=== PATIENT | female | born 1955 | race Caucasian/White ===

== ENCOUNTER 2018-01-19 07:09 | Day surgery (SDC) | payer OTHER ==
[2018-01-19] MEDS ORDERED: LACTATED RINGERS 1,000 ML IV ONE ×2 (07:38→08:42)
[2018-01-19] MEDS ORDERED: fentaNYL 250 MCG/5 ML VIAL IVP ONE (08:10)
[2018-01-19] MEDS ORDERED: MIDAZOLAM 2 MG/2 ML VIAL IVP ONE (08:10)
[2018-01-19 09:02] VITALS: BP 145/97
[2018-01-19] MEDS ORDERED: ONDANSETRON ODT 4 MG TABLET ONE (09:54)
== END 2018-01-19 07:10 | disposition home or self-care (01) ==
LOC: SDS 07:09
PROVIDERS: ATTEND Surgery
PROC: 0DJD8ZZ Inspection of Lower Intestinal Tract, Via Natural or Artificial Opening Endoscopic (ICD-10-PCS; principal; 2018-01-19 08:21)
DX: Z12.11 Encounter for screening for malignant neoplasm of colon (principal); K64.8 Other hemorrhoids; I10 Essential (primary) hypertension; Z87.891 Personal history of nicotine dependence
CPT/HCPCS: 45378; J3010; J7120; Q0162

== ENCOUNTER 2018-04-28 15:38 | Outpatient (CLI) | payer OTHER ==
--- NOTE | 2018-04-29 14:09 | MRI Report ---
Reason: PAIN IN UNSPECIFIED KNEE Procedure Date: 04/28/2018 Accession Number: [id number] / [id number] Procedure: MRI - Knee RT W/O CPT Code: FULL RESULT: EXAM: RIGHT KNEE MRI WITHOUT CONTRAST EXAM DATE: 04/28/2018 05:03 PM. CLINICAL HISTORY: Worsening right knee pain. Previous ACL reconstruction 30 years ago. COMPARISON: None. TECHNIQUE: Multiplanar, multisequence T1-weighted and fluid-sensitive sequences of the knee without contrast. Other: None. FINDINGS: Bones and articular cartilage: Postoperative changes at the distal femur and proximal tibia from previous ACL reconstruction. Metallic hardware at the proximal tibia which causes some artifact. No definite acute fracture or bone lesions. Marginal osteophytes at the femoral condyles, tibial plateau, patella, and femoral trochlea. Focal grade IV chondromalacia at the central aspect of the medial femoral condyle. Focal full-thickness articular cartilage defect at the medial tibial plateau. Grade II chondromalacia at the median ridge and medial facet of the patella. Focal 3 mm full-thickness articular cartilage defect at the lateral trochlear facet. Articular cartilage delamination injury at the lateral trochlear facet. No patellar subluxation. Medial Meniscus: Horizontal tear extending through the inferior surface and free edge fraying at the posterior horn and body. The medial meniscal body is partially extruded medially from the medial joint compartment. Lateral Meniscus: The lateral meniscus is intact. Cruciate Ligaments: The ACL graft is intact. The posterior cruciate ligament is intact. There is an approximately 1.6 x 1.1 x 1.4 cm multilobular and septated intraosseous and extraosseous cyst arising from an osteophyte at the posterior lateral aspect of the medial tibial plateau. The cyst is also posterior to the posterior cruciate ligament. Collateral Ligaments: The medial collateral and lateral collateral ligamentous structures are intact. Tendons: The quadriceps, patellar, semimembranosus, and popliteus tendons are unremarkable. Musculature: No edema or fatty atrophy. Other: Small joint effusion. No popliteal cyst. No loose bodies. The medial and lateral retinacula are intact. The subcutaneous tissues and fat pads are unremarkable. IMPRESSION: 1. Previous ACL reconstruction. The ACL graft is intact. 2. 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 3. Horizontal tear and free edge fraying at the posterior horn and body of the medial meniscus. 4. A 1.6 x 1.1 x 1.4 cm multilobular and septated intraosseous and extraosseous cyst arising from an osteophyte at the posterior lateral aspect of the medial tibial plateau. 5. Small joint effusion. [facility] MUSCULOSKELETAL RADIOLOGY SECTION
== END 2018-04-28 15:39 | disposition home or self-care (01) ==
LOC: DI 15:38
PROVIDERS: ATTEND Registered Nurse Diabetes Educator
DX: M17.11 Unilateral primary osteoarthritis, right knee (principal); S83.241A Other tear of medial meniscus, current injury, right knee, initial encounter; M25.761 Osteophyte, right knee; M25.461 Effusion, right knee

== ENCOUNTER 2021-04-16 12:59 | Outpatient (CLI) | payer OTHER | END 2021-04-16 13:00 | disposition short-term general hospital (02) | LOC: EMS 12:59 | DX: S99.912A Unspecified injury of left ankle, initial encounter (principal); W10.9XXA Fall (on) (from) unspecified stairs and steps, initial encounter; Y93.89 Activity, other specified; Y92.009 Unspecified place in unspecified non-institutional (private) residence as the place of occurrence of the external cause | CPT/HCPCS: A0425; A0427 ==

== ENCOUNTER 2022-08-02 14:34 | Outpatient (CLI) | payer MEDICARE, OTHER ==
[2022-08-02 18:17] LABS: ALBUMIN 4.5 g/dL (3.2-5.5); ALBUMIN/GLOBULIN RATIO 1.5 (1.0-2.2); BILIRUBIN,TOTAL 0.8 mg/dL (0.2-1.0); CALCIUM 9.5 mg/dL (8.5-10.3); POTASSIUM 3.5 mmol/L (3.5-5.0); TOTAL PROTEIN 7.6 g/dL (6.7-8.2)
== END 2022-08-02 14:35 | disposition home or self-care (01) ==
LOC: LAB.N 14:34
PROVIDERS: ATTEND Physician Assistant
DX: E87.6 Hypokalemia (principal)
CPT/HCPCS: 36415; 80053

== ENCOUNTER 2022-10-15 07:39 | Outpatient (CLI) | payer MEDICARE, OTHER ==
--- NOTE | 2022-10-15 11:13 | XRAY Report ---
PROCEDURE: Cervical Spine Comp w/Flex/Ext INDICATIONS: PARESTHESIA OF SKIN TECHNIQUE: 7 views of the cervical spine were acquired. COMPARISON: None. FINDINGS: Bones: No fractures or dislocations to the C7-T1 level. No suspicious bony lesions. Multilevel mod erate to severe degenerative disc space narrowing is present most severe at C3-4. Multilevel anterior osteophytes as well as uncovertebral arthropathy is present. There is retrolisthesis of C3 on C4. Mu ltilevel moderate to severe foraminal narrowing is present left greater than right. There is decrease d range of motion between flexion and extension, with preserved normal bony alignment. Soft tissues: Prevertebral soft tissues are normal in thickness. IMPRESSION: Prominent multilevel degenerative changes including disc space narrowing and foraminal n arrowing as above. Reviewed by: Sonia Lombardo MD on 10/15/2022 11:11 AM PDT Approved by: Sonia Lombardo MD on 10/15/2022 11:11 AM PDT Station ID: [id number]
== END 2022-10-15 07:40 | disposition home or self-care (01) ==
LOC: DI 07:39
PROVIDERS: ATTEND Physician Assistant
DX: R20.2 Paresthesia of skin (principal); M47.812 Spondylosis without myelopathy or radiculopathy, cervical region; M48.02 Spinal stenosis, cervical region

== ENCOUNTER 2023-06-05 07:08 | Outpatient (CLI) | payer MEDICARE, OTHER ==
[2023-06-05 12:05] LABS: BASOPHILS % (AUTO) 0.7 %; EOSINOPHILS # (AUTO) 0.1 10^3/uL (0.0-0.7); HCT - HEMATOCRIT 42.4 % (37.0-47.0); HGB - HEMOGLOBIN 13.6 g/dL (12.0-16.0); LYMPHOCYTES # (AUTO) 2.1 10^3/uL (1.5-3.5); LYMPHOCYTES % (AUTO) 48.4 %; MEAN CORPUSCULAR HEMOGLOBIN 30.1 pg (27.0-31.0); MEAN CORPUSCULAR HGB CONC 32.1 g/dL (32.0-36.0); MEAN CORPUSCULAR VOLUME 93.8 fL (81.0-99.0); MEAN PLATELET VOLUME 10.6 fL (7.9-10.8); MONOCYTES # (AUTO) 0.3 10^3/uL (0.0-1.0); MONOCYTES % (AUTO) 7.2 %; NEUTROPHILS # (AUTO) 1.7 10^3/uL (1.5-6.6); NEUTROPHILS % (AUTO) 40.5 %; PLT - PLATELET COUNT 221 10^3/uL (130-450); RED BLOOD COUNT 4.52 10^6/uL (4.20-5.40); WHITE BLOOD COUNT 4.3 x10^3/uL (4.8-10.8)
[2023-06-05 12:30] LABS: ALBUMIN 4.3 g/dL (3.2-5.5); ALBUMIN/GLOBULIN RATIO 1.6 (1.0-2.2); ALKALINE PHOSPHATASE 56 IU/L (42-121); ALT ALANINE AMINOTRANSFERASE 12 IU/L (10-60); AST ASPARTATE AMINOTRANSFERASE 12 IU/L (10-42); BILIRUBIN,TOTAL 0.5 mg/dL (0.2-1.0); BUN - BLOOD UREA NITROGEN 21 mg/dL (6-20); CALCIUM 9.6 mg/dL (8.5-10.3); CARBON DIOXIDE - CO2 32 mmol/L (21-32); CHLORIDE 101 mmol/L (101-111); CHOL/HDL RATIO 3.5 (<4.4); CHOLESTEROL 221 mg/dL; CREATININE 0.7 mg/dL (0.6-1.3); GFR - MDRD 84 (>89); GLUCOSE 102 mg/dL (74-104); HDL CHOLESTEROL 64 mg/dL; LDL CHOLESTEROL,CALCULATED 116 mg/dL; LDL/HDL RATIO 1.8 (<4.4); POTASSIUM 3.9 mmol/L (3.5-4.5); SODIUM 138 mmol/L (135-145); TRIGLYCERIDES 203 mg/dL (48-352); VLDL CHOLESTEROL 41 mg/dL
[2023-06-05 12:32] LABS: ESTIMATED AVERAGE GLUCOSE 114 mg/dL (70-100); HEMOGLOBIN A1c% 5.6 % (4.27-6.07)
[2023-06-05 14:27] LABS: THYROID STIMULATING HORMONE 2.92 uIU/mL (0.34-5.60)
== END 2023-06-05 07:09 | disposition home or self-care (01) ==
LOC: LAB.N 07:08
PROVIDERS: ATTEND Nurse Practitioner Family
DX: I10 Essential (primary) hypertension (principal); Z13.220 Encounter for screening for lipoid disorders; E66.9 Obesity, unspecified; Z13.1 Encounter for screening for diabetes mellitus
CPT/HCPCS: 36415; 80053; 80061; 83036; 83721; 84443; 85025